=== PATIENT | female | born 1985 | race American Indian/Alaskan Native ===

== ENCOUNTER 2017-02-21 10:45 | Day surgery (SDC) | payer MEDICAID ==
--- NOTE | 2017-02-21 11:29 | Short Stay Summary ---
Short Stay Documentation Date of service: 02/21/17 Narrative H&P: 31y/o @ 9 weeks ega with findings of an embryonic demise. The ultrasound demonstrated no cardiac activity with a crown rump length of 7+6 weeks. The patient denies vaginal bleeding or passage of tissue. She reports no precipitating event for her demise. - History Principal diagnosis: Missed Past Medical History: No medical history Past Surgical History: Social history: single, smoking - Allergies and Medications Current Medications: Allergies oxycodone [Oxycodone] Allergy (Verified 02/20/17 19:31) Shortness of Breath Home Medications Medication Instructions Recorded Confirmed Last Taken Type Acetaminophen [Tylenol Extra 500 mg PO Q6H PRN 02/20/17 02/20/17 Unknown History Strength] - Physical exam General appearance: no acute distress Integumentary: no rash HEENT: Atraumatic Lungs: Clear to auscultation Breasts: deferred Heart: Regular rate Gastrointestinal: normal - Brief post op/procedure progress note Date of procedure: 02/21/17 Pre-op diagnosis: embryonic demise Post-op diagnosis: same Procedure: Suction dilatation and curettage Anesthesia: GETA Surgeon: KECIA KAT Estimated blood loss: 50-100ml Pathology: list (products of conception) Specimen disposition: to lab Condition: stable - Hospital course Hospital course: The patient was admitted the day of surgery and underwent a suction dilatation and curettage for embryonic demise at 8 weeks. Please see operative note for details of surgery. Her postoperative course was uneventful. - Disposition Condition at discharge: Good Disposition: DC-01 TO HOME OR SELFCARE Short Stay Discharge Plan Activity: other (pelvic rest for 1 week) Diet: regular Additional Instructions: Follow-up with Dr. Kat 2-4 weeks Prescriptions: Hydromorphone HCl [Dilaudid] 4 mg PO Q8H PRN #20 tablet PRN Reason: Pain Ibuprofen [Motrin] 800 mg PO Q8HR PRN #60 tablet PRN Reason: Pain
[2017-02-21] MEDS ORDERED: NACL BACTERIOSTATIC INFILTRATI ONE (11:31)
--- NOTE | 2017-02-21 11:56 | Anesthesia Consultation ---
Anesthesia Consult and Med Hx Date of service: 02/21/17 - Airway Anesthetic Teeth Evaluation: Good ROM Head & Neck: Adequate Mental/Hyoid Distance: Adequate Mallampati Class: Class II Intubation Access Assessment: Probably Good - Pulmonary Exam CTA: Yes - Cardiac Exam Cardiac Exam: RRR - Pre-Operative Health Status ASA Pre-Surgery Classification: ASA2 Proposed Anesthetic Plan: General - Pulmonary Hx Smoking: Yes (quit when found out she was ) Hx Asthma: Yes COPD: No Hx Pneumonia: No - Central Nervous System Hx Psychiatric Problems: No - Gastrointestinal Hx Ulcer: No (diverticulitis) - Endocrine Hx End Stage Renal Disease: No - Hematic Hx Anemia: Yes - Other Systems Hx Cancer: No Hx Obesity: Yes (BMI 37.7)
--- NOTE | 2017-02-21 11:56 | Anesthesia Day of Surgery ---
Anesthesia Day of Surgery - Day of Surgery Patient Examined: Yes Patient H&P Reviewed: Yes Patient is NPO: Yes
[2017-02-21] MEDS ORDERED: MORPHINE IV PRN (11:57)
[2017-02-21] MEDS ORDERED: VERSED IV NR (12:00)
[2017-02-21] MEDS ORDERED: PEPCID PO NR (12:00)
[2017-02-21] MEDS ORDERED: LACTATED RINGERS 1,000 ML IV SCH (12:00)
[2017-02-21] MEDS ORDERED: XYLOCAINE MPF 2% ONE (12:29)
[2017-02-21] MEDS ORDERED: DIPRIVAN 10 MG/ML IV ONE (12:29)
[2017-02-21] MEDS ORDERED: DECADRON ONE (12:30)
[2017-02-21] MEDS ORDERED: ZOFRAN ONE (12:30)
[2017-02-21] MEDS ORDERED: DILAUDID ONE (12:33)
[2017-02-21] MEDS ORDERED: METHERGINE IM ONE ×2 (13:11→13:28)
--- NOTE | 2017-02-21 13:20 | Operative Report ---
Operative Report Operative Report: Date of surgery: 02/21/2017 Preoperative diagnosis: Missed Postoperative diagnosis: Same as above Procedure: Suction dilatation and curettage Surgeon: Michelle Joseph M.D. Anesthesia: Gen. endotracheal anesthesia Estimated blood loss: 100 mL Findings: Products of conception Indication: 31-year-old 003 at 9 weeks estimated gestational age who underwent ultrasound with findings of embryonic demise that occurred at approximately 7+6 weeks gestational age Procedure: The patient was taken to the operating room and given general endotracheal anesthesia without complication. The patient is prepped and draped in a normal sterile fashion. A bivalve speculum was placed in the patient's vagina and a single-tooth tenaculums placed on the anterior lip of the cervix. The uterine cavity was then sounded. The cervical os was then dilated with graduated dilators. A number 8 Maori curved cannula was placed to suction and found to be adequate. The cannula was then gently inserted into the dilated cervical os. Evacuation of the uterine contents were performed. Sharp curettage and endometrial surface was performed until cry was achieved. The cannula was then gently reinserted into the uterine cavity to evacuate any additional contents. After removal of the cannula there was no evidence of any active bleeding. The vaginal instruments were then removed atraumatically. The patient was then successfully extubated and taken to the recovery room in stable condition. All sponge laps and needle counts were correct 2. Pathology consisted of products of conception.
[2017-02-21] MEDS ORDERED: NACL 0.9% IR ONE (13:28)
[2017-02-21] MEDS ORDERED: NORCO 10/325 PO PRN (14:35)
[2017-02-21 14:58] VITALS: BP 105/61
== END 2017-02-21 16:00 | disposition home or self-care (01) ==
LOC: OR 10:45
PROVIDERS: ATTEND Obstetrics & Gynecology
DX: O02.1 Missed abortion (principal); J45.909 Unspecified asthma, uncomplicated; E66.01 Morbid (severe) obesity due to excess calories; Z68.37 Body mass index [BMI] 37.0-37.9, adult; Z98.890 Other specified postprocedural states; Z88.5 Allergy status to narcotic agent; Z87.891 Personal history of nicotine dependence; Z3A.09 9 weeks gestation of pregnancy
CPT/HCPCS: 59820; 88305; J1100; J1170; J2210; J2250; J2270; J2405; J2704; J7120

== ENCOUNTER 2017-09-06 09:11 | Emergency (ER) | payer MEDICAID ==
[2017-09-06 09:19] VITALS: BP 115/70
[2017-09-06] MEDS ORDERED: MOTRIN PO ONE (09:38)
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
== END 2017-09-06 10:07 | disposition home or self-care (01) ==
LOC: ED 09:11
DX: M25.561 Pain in right knee (principal); K21.9 Gastro-esophageal reflux disease without esophagitis; G43.909 Migraine, unspecified, not intractable, without status migrainosus; J45.909 Unspecified asthma, uncomplicated; F17.200 Nicotine dependence, unspecified, uncomplicated; Z88.8 Allergy status to other drugs, medicaments and biological substances
CPT/HCPCS: 99283

== ENCOUNTER 2018-01-09 09:58 | Emergency (ER) | payer SELFPAY ==
[2018-01-09 10:11] VITALS: BP 117/74
[2018-01-09 10:53] LABS: Bilirubin,Urine NEG (Negative); Blood,Urine NEG (Negative); Color,Urine Yellow (Yellow); Mucus,Urine FEW /HPF; Urobilinogen,Urine < 2.0 mg/dL (<2.0)
[2018-01-09 10:55] LABS: HCG Qualitative,Urine Negative (Negative)
--- NOTE | 2018-01-09 11:13 | Emergency Department Report ---
ED Abdominal Pain HPI - General Chief Complaint: Abdominal Pain Stated Complaint: NAUSEA/ABD PAIN Time Seen by Provider: 01/09/18 10:38 Source: patient Mode of arrival: Ambulatory Limitations: No Limitations - History of Present Illness Initial Comments: 32-year-old female with suprapubic pain 2 days. Patient reports nausea, denies vomiting. Patient reports urinary frequency, denies vaginal bleeding or discharge, denies hematuria. Patient states pain somewhat relieved with ibuprofen. States pain is constant and feels like she has a knot in her stomach. Patient states he has had episodes similar to the past, but has never been evaluated for it. States the pain usually lasts 3 days and then goes away. Patient states she decided to undergo evaluation today because she now has a job in before she was able to stay home and rest and wait for the pain to subside. MD Complaint: abdominal pain -: days(s) (2) Location: suprapubic Radiation: none Migration to: no migration Severity: moderate Quality: other ("feels like a knot in my stomach") Consistency: constant Improves With: medication (ibuprofen) Worsens With: nothing Associated Symptoms: nausea, constipation. denies: vomiting, diarrhea, fever, dysuria, hematuria Treatments Prior to Arrival: NSAIDs - Related Data Home Medications Medication Instructions Recorded Confirmed Last Taken Acetaminophen [Tylenol Extra 500 mg PO Q6H PRN 02/20/17 02/21/17 02/20/17 Strength] Previous Rx's Medication Instructions Recorded Last Taken Type Hydromorphone HCl [Dilaudid] 4 mg PO Q8H PRN #20 tablet 02/21/17 Unknown Rx Ibuprofen [Motrin] 800 mg PO Q8HR PRN #60 tablet 02/21/17 Unknown Rx Ibuprofen 800 mg PO Q6H 5 Days #20 tablet 09/06/17 Unknown Rx Naproxen [Naprosyn] 500 mg PO BID #20 tablet 01/09/18 Unknown Rx Promethazine [Phenergan TAB] 25 mg PO Q6HR PRN #20 tab 01/09/18 Unknown Rx traMADol [Ultram] 50 mg PO Q6HR PRN #7 tablet 01/09/18 Unknown Rx Allergies Allergy/AdvReac Type Severity Reaction Status Date / Time oxycodone [Oxycodone] Allergy Shortness Verified 02/20/17 19:31 of Breath ED Review of Systems ROS: Stated complaint: NAUSEA/ABD PAIN Other details as noted in HPI Comment: All other systems reviewed and negative Constitutional: denies: chills, fever Gastrointestinal: abdominal pain, nausea, constipation. denies: vomiting, diarrhea Genitourinary: frequency. denies: dysuria, hematuria, discharge, abnormal menses ED Past Medical Hx - Past Medical History Hx Congestive Heart Failure: No Hx Diabetes: No Hx GERD: Yes Hx Headaches / Migraines: Yes (migraines) Hx Asthma: Yes Hx COPD: No Additional medical history: diverticulitis PCOS - Surgical History Past Surgical History?: Yes Additional Surgical History: - Social History Smoking Status: Current Every Day Smoker Substance Use Type: None - Medications Home Medications: Home Medications Medication Instructions Recorded Confirmed Last Taken Type Acetaminophen [Tylenol Extra 500 mg PO Q6H PRN 02/20/17 02/21/17 02/20/17 History Strength] Hydromorphone HCl [Dilaudid] 4 mg PO Q8H PRN #20 tablet 02/21/17 Unknown Rx Ibuprofen [Motrin] 800 mg PO Q8HR PRN #60 tablet 02/21/17 Unknown Rx Ibuprofen 800 mg PO Q6H 5 Days #20 tablet 09/06/17 Unknown Rx Naproxen [Naprosyn] 500 mg PO BID #20 tablet 01/09/18 Unknown Rx Promethazine [Phenergan TAB] 25 mg PO Q6HR PRN #20 tab 01/09/18 Unknown Rx traMADol [Ultram] 50 mg PO Q6HR PRN #7 tablet 01/09/18 Unknown Rx ED Physical Exam - General Limitations: No Limitations General appearance: alert, in no apparent distress - Head Head exam: Present: atraumatic, normocephalic - Eye Eye exam: Present: normal appearance - ENT ENT exam: Present: mucous membranes moist - Neck Neck exam: Present: normal inspection - Respiratory Respiratory exam: Present: normal lung sounds bilaterally. Absent: respiratory distress - Cardiovascular Cardiovascular Exam: Present: regular rate, normal rhythm - GI/Abdominal GI/Abdominal exam: Present: soft, tenderness (mild suprapubic tenderness) - Extremities Exam Extremities exam: Present: normal inspection - Neurological Exam Neurological exam: Present: alert, oriented X3 - Psychiatric Psychiatric exam: Present: normal affect, normal mood - Skin Skin exam: Present: warm, dry, intact, normal color ED Course Vital Signs 01/09/18 01/09/18 10:06 12:48 Temperature 98.9 F Pulse Rate 64 Respiratory 18 18 Rate Blood Pressure 117/74 O2 Sat by Pulse 100 Oximetry ED Medical Decision Making - Radiology Data Radiology results: report reviewed, image reviewed ULTRASOUND PELVIS DUPLEX DOPPLER COMPLETE ULTRASOUND TRANSVAGINAL HISTORY: Abdominal pain. COMPARISON: None. TECHNIQUE: Transabdominal and transvaginal ultrasound with color doppler interrogation. FINDINGS: Uterus: The uterus is anteverted. The uterus measures 8.6 x 4.5 x 5.5 cm. There is suggestion of a scar in the anterior wall, correlate with history. Normal cervix. Endometrium: Homogeneous. 10 mm in thickness. Right ovary: 2.1 x 1.9 x 1.7 cm. A 1.6 cm exophytic cyst is noted from the right ovary. Left ovary: 3.1 x 2.4 x 2.5 cm. No focal abnormality. No pelvic fluid or mass is identified. Spectral Doppler waveforms demonstrate arterial flow to both ovaries IMPRESSION: 1.6 cm right ovarian cyst. Transcribed By: TTR Dictated By: BOYD GUTIERREZ JR, MD Electronically Authenticated By: BOYD GUTIERREZ JR, MD Signed Date/Time: 01/09/18 1210 - Differential Diagnosis UTI, , ovarian cyst, ovarian torsion Critical care attestation.: If time is entered above; I have spent that time in minutes in the direct care of this critically ill patient, excluding procedure time. ED Disposition Clinical Impression: Right ovarian cyst Disposition: DC-01 TO HOME OR SELFCARE Is pt being admited?: No Condition: Stable Instructions: Ovarian Cyst (ED) Prescriptions: Naproxen [Naprosyn] 500 mg PO BID #20 tablet Promethazine [Phenergan TAB] 25 mg PO Q6HR PRN #20 tab PRN Reason: Nausea traMADol [Ultram] 50 mg PO Q6HR PRN #7 tablet PRN Reason: Pain Referrals: PRIMARY CARE, [Primary Care Provider] - 3-5 Days [facility] [Provider Group] - 3-5 Days Forms: Work/School Release Form(ED) Time of Disposition: 12:31
--- NOTE | 2018-01-09 12:12 | Ultrasound Report ---
ULTRASOUND PELVIS DUPLEX DOPPLER COMPLETE ULTRASOUND TRANSVAGINAL HISTORY: Abdominal pain. COMPARISON: None. TECHNIQUE: Transabdominal and transvaginal ultrasound with color doppler interrogation. FINDINGS: Uterus: The uterus is anteverted. The uterus measures 8.6 x 4.5 x 5.5 cm. There is suggestion of a scar in the anterior wall, correlate with history. Normal cervix. Endometrium: Homogeneous. 10 mm in thickness. Right ovary: 2.1 x 1.9 x 1.7 cm. A 1.6 cm exophytic cyst is noted from the right ovary. Left ovary: 3.1 x 2.4 x 2.5 cm. No focal abnormality. No pelvic fluid or mass is identified. Spectral Doppler waveforms demonstrate arterial flow to both ovaries IMPRESSION: 1.6 cm right ovarian cyst.
[2018-01-09] MEDS ORDERED: ULTRAM ONE (12:44)
[2018-01-09] MEDS ORDERED: ULTRAM PO ONE (12:46)
== END 2018-01-09 12:51 | disposition home or self-care (01) ==
LOC: ED 09:58
DX: N83.201 Unspecified ovarian cyst, right side (principal); K21.9 Gastro-esophageal reflux disease without esophagitis; G43.909 Migraine, unspecified, not intractable, without status migrainosus; J45.909 Unspecified asthma, uncomplicated; F17.200 Nicotine dependence, unspecified, uncomplicated; Z88.5 Allergy status to narcotic agent
CPT/HCPCS: 76830; 81001; 81025; 93975; 99284

== ENCOUNTER 2018-09-24 08:21 | Emergency (ER) | payer MEDICAID, OTHER ==
[2018-09-24 08:43] VITALS: BP 111/67
[2018-09-24] MEDS ORDERED: ZOFRAN IV ONE (09:56)
[2018-09-24] MEDS ORDERED: NACL 0.9% 1000 ML 1,000 ML IV ONE (09:56)
[2018-09-24 12:23] LABS: Bacteria,Urine 1+ /HPF (Negative); Bilirubin,Urine NEG (Negative); Blood,Urine NEG (Negative); Color,Urine Yellow (Yellow); Mucus,Urine 2+ /HPF; Protein,Urine <15 mg/dL mg/dL (Negative)
--- NOTE | 2018-09-24 12:49 | Emergency Department Report ---
ED General Adult HPI - General Chief complaint: Dizziness Stated complaint: DIZZINESS Time Seen by Provider: 09/24/18 09:46 Source: patient Mode of arrival: Ambulatory Limitations: No Limitations - History of Present Illness Initial comments: Patient is a 33-year-old Female who is presenting with some nausea vomiting and mild dizziness for the last several days. Patient states she is and her last menstrual period is 08/10/2018. Patient has not seen FLOORING GRADER as of yet and does not have insurance secondary to not have a confirmation of . Patient states that she has some generalized crampy lower abdominal discomfort but denies any vaginal bleeding. Severity scale (0 -10): 4 - Related Data Home Medications Medication Instructions Recorded Confirmed Last Taken Acetaminophen [Tylenol Extra 500 mg PO Q6H PRN 02/20/17 02/21/17 02/20/17 Strength] Previous Rx's Medication Instructions Recorded Last Taken Type Hydromorphone HCl [Dilaudid] 4 mg PO Q8H PRN #20 tablet 02/21/17 Unknown Rx Ibuprofen [Motrin] 800 mg PO Q8HR PRN #60 tablet 02/21/17 Unknown Rx Ibuprofen [Ibuprofen 800] 800 mg PO Q6H 5 Days #20 tablet 09/06/17 Unknown Rx Naproxen [Naprosyn] 500 mg PO BID #20 tablet 01/09/18 Unknown Rx Promethazine [Phenergan TAB] 25 mg PO Q6HR PRN #20 tab 01/09/18 Unknown Rx traMADol [Ultram] 50 mg PO Q6HR PRN #7 tablet 01/09/18 Unknown Rx ALBUTEROL Inhaler (OR & NICU) 2 puff IH QID PRN #1 inhalation 02/18/18 Unknown Rx [ProAir HFA Inhaler] Azithromycin [Zithromax Z-WALDEMAR] 250 mg PO DAILY #6 tablet 02/18/18 Unknown Rx Ondansetron [Zofran Odt] 4 mg PO Q8HR PRN #10 tab.rapdis 02/18/18 Unknown Rx predniSONE [Deltasone] 20 mg PO QDAY #5 tab 02/18/18 Unknown Rx Nitrofurantoin Sutter/M-Cryst 100 mg PO Q12HR #14 capsule 09/24/18 Unknown Rx [Macrobid CAP] Ondansetron [Zofran Odt] 4 mg PO Q8HR #10 tab.rapdis 09/24/18 Unknown Rx Allergies Allergy/AdvReac Type Severity Reaction Status Date / Time oxycodone [Oxycodone] Allergy Shortness Verified 09/24/18 08:37 of Breath ED Review of Systems ROS: Stated complaint: DIZZINESS Other details as noted in HPI Comment: All other systems reviewed and negative ED Past Medical Hx - Past Medical History Hx Congestive Heart Failure: No Hx Diabetes: No Hx GERD: Yes Hx Headaches / Migraines: Yes (migraines) Hx Asthma: Yes Hx COPD: No Additional medical history: diverticulitis PCOS - Surgical History Additional Surgical History: - Social History Smoking Status: Current Every Day Smoker - Medications Home Medications: Home Medications Medication Instructions Recorded Confirmed Last Taken Type Acetaminophen [Tylenol Extra 500 mg PO Q6H PRN 02/20/17 02/21/17 02/20/17 History Strength] Hydromorphone HCl [Dilaudid] 4 mg PO Q8H PRN #20 tablet 02/21/17 Unknown Rx Ibuprofen [Motrin] 800 mg PO Q8HR PRN #60 tablet 02/21/17 Unknown Rx Ibuprofen [Ibuprofen 800] 800 mg PO Q6H 5 Days #20 tablet 09/06/17 Unknown Rx Naproxen [Naprosyn] 500 mg PO BID #20 tablet 01/09/18 Unknown Rx Promethazine [Phenergan TAB] 25 mg PO Q6HR PRN #20 tab 01/09/18 Unknown Rx traMADol [Ultram] 50 mg PO Q6HR PRN #7 tablet 01/09/18 Unknown Rx ALBUTEROL Inhaler (OR & NICU) 2 puff IH QID PRN #1 inhalation 02/18/18 Unknown Rx [ProAir HFA Inhaler] Azithromycin [Zithromax Z-WALDEMAR] 250 mg PO DAILY #6 tablet 02/18/18 Unknown Rx Ondansetron [Zofran Odt] 4 mg PO Q8HR PRN #10 tab.rapdis 02/18/18 Unknown Rx predniSONE [Deltasone] 20 mg PO QDAY #5 tab 02/18/18 Unknown Rx Nitrofurantoin Sutter/M-Cryst 100 mg PO Q12HR #14 capsule 09/24/18 Unknown Rx [Macrobid CAP] Ondansetron [Zofran Odt] 4 mg PO Q8HR #10 tab.rapdis 09/24/18 Unknown Rx ED Physical Exam - General Limitations: No Limitations General appearance: alert, in no apparent distress - Head Head exam: Present: atraumatic, normocephalic - Eye Eye exam: Present: normal appearance - ENT ENT exam: Present: mucous membranes moist - Neck Neck exam: Present: normal inspection - Respiratory Respiratory exam: Present: normal lung sounds bilaterally. Absent: respiratory distress, wheezes, rales, rhonchi - Cardiovascular Cardiovascular Exam: Present: regular rate, normal rhythm. Absent: systolic murmur, diastolic murmur, rubs, gallop - GI/Abdominal GI/Abdominal exam: Present: soft, normal bowel sounds. Absent: distended, tenderness, guarding, rebound - Extremities Exam Extremities exam: Present: normal inspection - Back Exam Back exam: Present: normal inspection - Neurological Exam Neurological exam: Present: alert, oriented X3 - Psychiatric Psychiatric exam: Present: normal affect, normal mood - Skin Skin exam: Present: warm, dry, intact, normal color. Absent: rash ED Course Vital Signs 09/24/18 09/24/18 09/24/18 08:42 09:29 10:43 Temperature 98.5 F Pulse Rate 74 Respiratory 20 16 14 Rate Blood Pressure 111/67 [Right] O2 Sat by Pulse 100 99 Oximetry ED Medical Decision Making - Lab Data Lab Results 09/24/18 09/24/18 Range/Units 10:12 11:32 HCG, Quant 81221 H (0-4) mIU/mL Urine Color Yellow (Yellow) Urine Turbidity Slightly-cloudy (Clear) Urine pH 6.0 (5.0-7.0) Ur Specific Carlos 1.014 (1.003-1.030) Urine Protein <15 mg/dl (Negative) mg/dL Urine Glucose (UA) Neg (Negative) mg/dL Urine Ketones 20 (Negative) mg/dL Urine Blood Neg (Negative) Urine Nitrite Neg (Negative) Urine Bilirubin Neg (Negative) Urine Urobilinogen 2.0 (<2.0) mg/dL Ur Leukocyte Esterase Mod (Negative) Urine WBC (Auto) 39.0 H (0.0-6.0) /HPF Urine RBC (Auto) 5.0 (0.0-6.0) /HPF U Epithel Cells (Auto) 1.0 (0-13.0) /HPF Urine Bacteria (Auto) 1+ (Negative) /HPF Urine Mucus 2+ /HPF - Medical Decision Making Patient's heart tones with normal limits. Patient was hydrated and given antiemetics and does feel better. Patient also shows evidence of a urinary tract infection will be started on Macrobid. Critical care attestation.: If time is entered above; I have spent that time in minutes in the direct care of this critically ill patient, excluding procedure time. ED Disposition Clinical Impression: Hyperemesis gravidarum Acute cystitis during Qualifiers: Trimester: first trimester Qualified Code(s): O23.11 - Infections of bladder in , first trimester Disposition: DC-01 TO HOME OR SELFCARE Is pt being admited?: No Does the pt Need Aspirin: No Condition: Stable Instructions: Hyperemesis Gravidarum (ED), Urinary Tract Infection in Women (ED) Referrals: EMANI MATSON MD [Primary Care Provider] - 3-5 Days Time of Disposition: 12:49
== END 2018-09-24 13:09 | disposition home or self-care (01) ==
LOC: ED 08:21
DX: O21.9 Vomiting of pregnancy, unspecified (principal); O23.11 Infections of bladder in pregnancy, first trimester; Z3A.01 Less than 8 weeks gestation of pregnancy
CPT/HCPCS: 36415; 81001; 84702; 87086; 96361; 96374; 99283; J2405; J7030

== ENCOUNTER 2018-09-29 08:17 | Emergency (ER) | payer MEDICAID, OTHER ==
[2018-09-29 08:50] LABS: Basophils % (Auto) 0.6 % (0.0-1.8); Eosinophils # (Auto) 0.1 K/mm3 (0.0-0.4); Eosinophils % (Auto) 0.9 % (0.0-4.3); Hematocrit 38.3 % (30.3-42.9); Hemoglobin 12.7 gm/dl (10.1-14.3); Lymphocytes # (Auto) 2.5 K/mm3 (1.2-5.4); Lymphocytes % (Auto) 32.2 % (13.4-35.0); Mean Corpuscular HGB Conc 33 % (30-34); Mean Corpuscular Volume 87 fl (79-97); Monocytes # (Auto) 0.5 K/mm3 (0.0-0.8); Monocytes % (Auto) 5.8 % (0.0-7.3); Platelet Count 289 K/mm3 (140-440); Red Cell Distribution Width 16.7 % (13.2-15.2)
[2018-09-29 09:20] LABS: BUN/Creatinine Ratio 12; Blood Urea Nitrogen 6 mg/dL (7-17); Calcium 9.4 mg/dL (8.4-10.2); Hemolysis Index 7
[2018-09-29 10:00] LABS: INR 1.04 (0.87-1.13)
[2018-09-29 10:01] LABS: Partial Thromboplastin Time 24.9 Sec. (24.2-36.6)
[2018-09-29] MEDS ORDERED: NACL 0.9% 1000 ML 1,000 ML IV ONE (10:04)
[2018-09-29] MEDS ORDERED: REGLAN IV ONE (10:14)
--- NOTE | 2018-09-29 10:29 | Emergency Department Report ---
HPI - General Chief Complaint: GI Bleed Time Seen by Provider: 09/29/18 09:20 - HPI HPI: 33-year-old female presents to the emergency department with a complaint of nausea, vomiting, dizziness and some rectal bleeding. The patient is currently but is unknown how far along she is. With this she is with one previous miscarriage. The patient says that she had an episode last night with a bowel movement that caused dark tarry stool. She denies any abdominal or pelvic pain. The patient was here about 5 or 6 days ago for the nausea and vomiting and was discharged with some Zofran. She says that the Zofran causes increased dizziness which does not help with her current symptoms. She otherwise has a past medical history of asthma, migraine headaches, PCO2 S and diverticulitis. She does not currently have an JOB DEVELOPER. The patient also complains of some either difficulty urinating or decreased urine output. She says that she is drinking fluids and sometimes she can "push out" the urine. ED Past Medical Hx - Past Medical History Previous Medical History?: Yes Hx Congestive Heart Failure: No Hx Diabetes: No Hx GERD: Yes Hx Headaches / Migraines: Yes (migraines) Hx Asthma: Yes Hx COPD: No Additional medical history: diverticulitis PCOS - Surgical History Past Surgical History?: Yes Additional Surgical History: - Social History Smoking Status: Current Every Day Smoker Substance Use Type: None - Medications Home Medications: Home Medications Medication Instructions Recorded Confirmed Last Taken Type Metoclopramide [Reglan] 10 mg PO TID PRN #15 tab 09/29/18 Unknown Rx Nitrofurantoin [place]/M-Cryst 100 mg PO Q12HR #14 capsule 09/29/18 Unknown Rx [Macrobid CAP] Vit-Fe Fumar-FA [ 1 tab PO QDAY #30 tablet 09/29/18 Unknown Rx Vitamin] ED Review of Systems ROS: Stated complaint: BLOOD IN STOOL/WEAK/VOMITING Other details as noted in HPI Comment: All other systems reviewed and negative Constitutional: denies: chills, fever Eyes: denies: eye pain, vision change ENT: denies: ear pain Respiratory: denies: cough, shortness of breath Cardiovascular: denies: chest pain, palpitations Gastrointestinal: nausea, vomiting, melena Genitourinary: dysuria. denies: hematuria, discharge Musculoskeletal: denies: back pain, arthralgia Skin: denies: rash, lesions Neurological: denies: headache, weakness Physical Exam - Physical Exam Vital Signs: Vital Signs 09/29/18 09/29/18 09/29/18 08:24 09:15 09:30 Temperature 98.3 F Pulse Rate 70 Respiratory 20 Rate Blood Pressure 129/84 120/61 105/57 O2 Sat by Pulse 99 100 100 Oximetry 09/29/18 10:00 Temperature Pulse Rate Respiratory Rate Blood Pressure 113/59 O2 Sat by Pulse 100 Oximetry Physical Exam: GENERAL: The patient is well-developed well-nourished. HENT: Normocephalic. Atraumatic. Patient has moist mucous membranes. EYES: Extraocular motions are intact. NECK: Supple. Trachea is midline. CHEST/LUNGS: Clear to auscultation. There is no respiratory distress noted. HEART/CARDIOVASCULAR: Regular. There is no tachycardia. There is no murmur. ABDOMEN: Abdomen is soft, nontender. Patient has normal bowel sounds. There is no abdominal distention. SKIN: Skin is warm and dry. NEURO: The patient is awake, alert, and oriented. The patient is cooperative. The patient has no focal neurologic deficits. The patient has normal speech. MUSCULOSKELETAL: There is no tenderness or deformity. There is no limitation range of motion. There is no evidence of acute injury. RECTAL: No gross blood. There was not much stool but what was obtained was negative on guaiac testing. ED Course Vital Signs 09/29/18 09/29/18 09/29/18 08:24 09:15 09:30 Temperature 98.3 F Pulse Rate 70 Respiratory 20 Rate Blood Pressure 129/84 120/61 105/57 O2 Sat by Pulse 99 100 100 Oximetry 09/29/18 10:00 Temperature Pulse Rate Respiratory Rate Blood Pressure 113/59 O2 Sat by Pulse 100 Oximetry - Reevaluation(s) Reevaluation #1: 09/29/18 10:48 Rectal examination done with nurse Harrington at bedside as a director of optimization. - Consultations Consultation #1: 09/29/18 15:10 I spoke with the JOB DEVELOPER on-call, Dr. Del Toro, who listened to the case presentation including the patient's history, labs, imaging. He agrees that the ultrasound results appear consistent with a miscarriage and/or demise. He also agrees with the plan for outpatient follow-up with JOB DEVELOPER. ED Medical Decision Making - Lab Data Result diagrams: 09/29/18 08:32 09/29/18 08:32 - Radiology Data Radiology results: report reviewed ULTRASOUND OB LESS THAN 14 WEEKS FETUS ULTRASOUND OB TRANSVAGINAL HISTORY: Pelvic pain and cramping during COMPARISON: None. TECHNIQUE: Routine transabdominal and transvaginal OB ultrasound performed. FINDINGS: Uterus: Mildly enlarged measuring 9.1 x 6.1 x 7.7 cm. Gestational Sac: 4.3 cm average diameter which correlates with a 9 week 6 day Yolk Sac: Normal in appearance. Fetus/Embryo: The pole has an abnormal appearance and measures 2.0 cm which correlates with an 8 week 4 day Embryonic/ cardiac activity: 0bpm Placenta: Too small for evaluation. Amniotic fluid volume: Subjectively appropriate for gestational age. Ovaries: The right ovary is normal in size and appearance with normal blood flow, measuring 1.9 x 1.2 x 0.9 cm. The left ovary is normal in size and appearance with normal blood flow, measuring 3.1 x 2.0 x 3.6 cm. Hypoechoic space-occupying mass in the right ovary with peripheral vascularity is most likely the corpus luteum. Additional findings: None. IMPRESSION Abnormal appearance of the pole. No heart rate could be detected. These findings are concerning for demise. Correlation with the patient's clinical presentation and close interval follow-up is recommended. - Medical Decision Making This patient initially presented for the complaints of nausea and vomiting, dizziness while . The patient's labs are mostly unremarkable. The beta hCG appears to have gone up from about 44,000-110,000 the past 5 days. Urinalysis shows signs of dehydration with greater than 80 ketones and a mild urinary tract infection. Patient was started on Macrobid and given some IV fluid resuscitation. She was given some Reglan for nausea as she says she has an adverse reaction to Zofran. Patient is able to keep down fluids and pass an oral challenge. The ultrasound was done that shows a slightly abnormal appearance to the pole and there is no current heartbeat identified. I spoke to the patient agreed detail regarding this ultrasound results showing concern for demise. The patient understands the importance of following up in the next few days with JOB DEVELOPER for a repeat beta hCG and possibly repeat ultrasound. She also understands that if she is unable to get in to see an JOB DEVELOPER in a reasonable amount of time, the next few days, then she can return to the emergency department for further evaluation. In the meantime, the patient will be started on vitamins and will be given Macrobid for her urinary tract infection. Some precautions were given about returning to the emergency department with any sharp abdominal or pelvic pains or any heavy vaginal bleeding or hemorrhage. - Differential Diagnosis , hyperemesis gravidarum, threatened miscarriage, spontaneous misc Critical Care Time: No Critical care attestation.: If time is entered above; I have spent that time in minutes in the direct care of this critically ill patient, excluding procedure time. ED Disposition Clinical Impression: Dehydration, Abnormal obstetric ultrasound scan Nausea & vomiting Qualifiers: Vomiting type: unspecified Vomiting Intractability: non-intractable Qualified Code(s): R11.2 - Nausea with vomiting, unspecified UTI (urinary tract infection) Qualifiers: Urinary tract infection type: acute cystitis Hematuria presence: without hematuria Qualified Code(s): N30.00 - Acute cystitis without hematuria Disposition: TO HOME OR SELFCARE Is pt being admited?: No Condition: Stable Instructions: Threatened Miscarriage (ED), (ED), Urinary Tract Infection in Women (ED), Acute Nausea and Vomiting (ED) Additional Instructions: Please follow up with an JOB DEVELOPER in the next few days. The ultrasound today did not show any heartbeat and therefore there are concerns for possible demise/miscarriage. I am still starting you on vitamins. You will need evaluation by an JOB DEVELOPER for a repeat hormone level and possible ultrasound. If you are unable to get into an JOB DEVELOPER in a reasonable amount of time, you can return to the emergency department for further evaluation. Return to the emergency department immediately with any heavy vaginal bleeding, sharp pelvic or abdominal pains, or with any acute distress. Take the antibiotics as prescribed for urinary tract infection. Prescriptions: Nitrofurantoin [place]/M-Cryst [Macrobid CAP] 100 mg PO Q12HR #14 capsule Vit-Fe Fumar-FA [ Vitamin] 1 tab PO QDAY #30 tablet Metoclopramide [Reglan] 10 mg PO TID PRN #15 tab PRN Reason: Nausea Referrals: [facility] [Provider Group] - 3-5 Days [facility] [Provider Group] - 3-5 Days [facility] [Provider Group] - 3-5 Days Forms: Accompanied Note Time of Disposition: 14:15
[2018-09-29 11:30] LABS: Bacteria,Urine 1+ /HPF (Negative); Bilirubin,Urine NEG (Negative); Blood,Urine NEG (Negative); Color,Urine Yellow (Yellow); Mucus,Urine 3+ /HPF
[2018-09-29] MEDS ORDERED: MACROBID PO ONE (12:08)
[2018-09-29] MEDS: NACL 0.9% 1000 ML 1,000 ML IV ONE ×2 (12:45→13:34)
--- NOTE | 2018-09-29 13:42 | Ultrasound Report ---
ULTRASOUND OB LESS THAN 14 WEEKS FETUS ULTRASOUND OB TRANSVAGINAL HISTORY: Pelvic pain and cramping during COMPARISON: None. TECHNIQUE: Routine transabdominal and transvaginal OB ultrasound performed. FINDINGS: Uterus: Mildly enlarged measuring 9.1 x 6.1 x 7.7 cm. Gestational Sac: 4.3 cm average diameter which correlates with a 9 week 6 day Yolk Sac: Normal in appearance. Fetus/Embryo: The pole has an abnormal appearance and measures 2.0 cm which correlates with an 8 week 4 day Embryonic/ cardiac activity: 0bpm Placenta: Too small for evaluation. Amniotic fluid volume: Subjectively appropriate for gestational age. Ovaries: The right ovary is normal in size and appearance with normal blood flow, measuring 1.9 x 1. 2 x 0.9 cm. The left ovary is normal in size and appearance with normal blood flow, measuring 3.1 x 2.0 x 3.6 cm. Hypoechoic space-occupying mass in the right ovary with peripheral vascularity is most likely the corpus luteum. Additional findings: None. IMPRESSION Abnormal appearance of the pole. No heart rate could be detected. These findings are conc erning for demise. Correlation with the patient's clinical presentation and close interval foll ow-up is recommended. Signer Name: Aren Daniel Jr, MD Signed: 09/29/2018 1:38 PM Workstation Name: [id number]
[2018-09-29 14:55] VITALS: BP 105/56
== END 2018-09-29 15:29 | disposition home or self-care (01) ==
LOC: ED 08:17
DX: O23.41 Unspecified infection of urinary tract in pregnancy, first trimester (principal); O21.9 Vomiting of pregnancy, unspecified; O26.891 Other specified pregnancy related conditions, first trimester; E86.0 Dehydration; G43.909 Migraine, unspecified, not intractable, without status migrainosus; O99.611 Diseases of the digestive system complicating pregnancy, first trimester; K21.0 Gastro-esophageal reflux disease with esophagitis; O99.511 Diseases of the respiratory system complicating pregnancy, first trimester; J45.909 Unspecified asthma, uncomplicated; O99.331 Smoking (tobacco) complicating pregnancy, first trimester; F17.200 Nicotine dependence, unspecified, uncomplicated; Z3A.09 9 weeks gestation of pregnancy; Z79.899 Other long term (current) drug therapy; Z88.8 Allergy status to other drugs, medicaments and biological substances
CPT/HCPCS: 36415; 76801; 76817; 80048; 81001; 84702; 85025; 85610; 85730; 87086; 96361; 96374; 99284; J2765; J7030

== ENCOUNTER 2019-05-11 00:08 | Emergency (ER) | payer MEDICAID, OTHER ==
[2019-05-11 00:30] VITALS: BP 147/91
[2019-05-11] MEDS ORDERED: SODIUM CHLORIDE 0.9% IRR 500 ML BOTTLE IR ONE (03:36)
[2019-05-11] MEDS ORDERED: SODIUM CHLORIDE IRRI 500 ML 500 ML IR ONE (03:36)
[2019-05-11] MEDS ORDERED: ACETAMINOPHEN 325 MG TAB PO ONE (03:47)
[2019-05-11] MEDS ORDERED: ACETAMINOPHEN 500 MG TAB ONE (03:49)
--- NOTE | 2019-05-11 04:28 | Emergency Department Report ---
ED ENT HPI - General Chief complaint: Earache Stated complaint: FB/RT EAR Time Seen by Provider: 05/11/19 03:19 Source: patient Mode of arrival: Ambulatory Limitations: No Limitations - History of Present Illness Initial comments: 33-year-old -[place] female presents to the emergency room for possible bug in right ear. Patient reports she feels it moving. This started 30 to 45 minutes prior to arrival. Patient reports she is used peroxide without relief. Patient is 39 weeks . 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) Location: R ear Severity: severe Severity scale (0 -10): 9 Quality: stabbing, sharp Consistency: intermittent Improves with: none Worsens with: none Associated Symptoms: denies: fever, pain with swallowing, tinnitus, discharge from ear - Related Data Previous Rx's Medication Instructions Recorded Last Taken Type Metoclopramide [Reglan] 10 mg PO TID PRN #15 tab 09/29/18 Unknown Rx Nitrofurantoin [place]/M-Cryst 100 mg PO Q12HR #14 capsule 09/29/18 Unknown Rx [Macrobid CAP] Vit-Fe Fumar-FA [ 1 tab PO QDAY #30 tablet 09/29/18 Unknown Rx Vitamin] Allergies Allergy/AdvReac Type Severity Reaction Status Date / Time oxycodone [Oxycodone] Allergy Shortness Verified 09/24/18 08:37 of Breath ED Dental HPI - General Chief complaint: Earache Stated complaint: FB/RT EAR Time Seen by Provider: 05/11/19 03:19 Source: patient Mode of arrival: Ambulatory Limitations: No Limitations - Related Data Previous Rx's Medication Instructions Recorded Last Taken Type Metoclopramide [Reglan] 10 mg PO TID PRN #15 tab 09/29/18 Unknown Rx Nitrofurantoin [place]/M-Cryst 100 mg PO Q12HR #14 capsule 09/29/18 Unknown Rx [Macrobid CAP] Vit-Fe Fumar-FA [ 1 tab PO QDAY #30 tablet 09/29/18 Unknown Rx Vitamin] Allergies Allergy/AdvReac Type Severity Reaction Status Date / Time oxycodone [Oxycodone] Allergy Shortness Verified 09/24/18 08:37 of Breath ED Review of Systems ROS: Stated complaint: FB/RT EAR Other details as noted in HPI Comment: All other systems reviewed and negative ED Past Medical Hx - Past Medical History Previous Medical History?: Yes Hx Congestive Heart Failure: No Hx Diabetes: No Hx GERD: Yes Hx Headaches / Migraines: Yes (migraines) Hx Asthma: Yes Hx COPD: No Additional medical history: diverticulitis PCOS - Surgical History Past Surgical History?: Yes Additional Surgical History: - Social History Smoking Status: Never Smoker Substance Use Type: None - Medications Home Medications: Home Medications Medication Instructions Recorded Confirmed Last Taken Type Metoclopramide [Reglan] 10 mg PO TID PRN #15 tab 09/29/18 Unknown Rx Nitrofurantoin [place]/M-Cryst 100 mg PO Q12HR #14 capsule 09/29/18 Unknown Rx [Macrobid CAP] Vit-Fe Fumar-FA [ 1 tab PO QDAY #30 tablet 09/29/18 Unknown Rx Vitamin] ED Physical Exam - General Limitations: No Limitations General appearance: alert, in no apparent distress - Head Head exam: Present: atraumatic, normocephalic - Eye Eye exam: Present: normal appearance - ENT ENT exam: Present: mucous membranes moist - Expanded ENT Exam Expanded TM/Canal exam: Loss of Landmarks: Right TM, Foreign Body: Right TM (Garcia in ear) - Respiratory Respiratory exam: Present: normal lung sounds bilaterally. Absent: respiratory distress - Cardiovascular Cardiovascular Exam: Present: tachycardia - Neurological Exam Neurological exam: Present: alert, oriented X3, normal gait - Psychiatric Psychiatric exam: Present: normal affect, normal mood - Skin Skin exam: Present: warm, dry, intact, normal color. Absent: rash ED Course Vital Signs 05/11/19 00:14 Temperature 98.5 F Pulse Rate 132 H Respiratory 18 Rate Blood Pressure 147/91 O2 Sat by Pulse 99 Oximetry ED Medical Decision Making - Medical Decision Making 33-year-old -[place] female presents to the emergency room for possible bug in right ear. Patient reports she feels it moving. This started 30 to 45 minutes prior to arrival. Patient reports she is used peroxide without relief. Patient is 39 weeks . Patient reports that she started having contractions while in our [facility]. Discussed importance of having and labor delivery evaluate patient. Patient reports that she has a scheduled on Saturday which is tomorrow. I also discussed with patient that it would be safe for her to be evaluated and if they felt that she is not in true active labor they will send her home. Patient reports to nursing staff that she prefers to go home. Critical care attestation.: If time is entered above; I have spent that time in minutes in the direct care of this critically ill patient, excluding procedure time. ED Disposition Clinical Impression: Foreign body in right ear, initial encounter, Uterine contractions at greater than 20 weeks of gestation Disposition: DC- TO HOME OR SELFCARE Is pt being admited?: No Does the pt Need Aspirin: No Condition: Stable Instructions: Ear Foreign Body (ED) Additional Instructions: I recommend for you to go to labor and delivery and be evaluated for contractions. Also recommend for you to follow-up with an audio visual aide or ear nose and throat provider to have insect removed from right ear. Referrals: PRIMARY CARE, [Primary Care Provider] - 3-5 Days PANDA COX MD [Staff Physician] - 3-5 Days
== END 2019-05-11 04:36 | disposition home or self-care (01) ==
LOC: ED 00:08
DX: O62.4 Hypertonic, incoordinate, and prolonged uterine contractions (principal); O26.893 Other specified pregnancy related conditions, third trimester; T16.1XXA Foreign body in right ear, initial encounter; Z3A.39 39 weeks gestation of pregnancy; Z88.6 Allergy status to analgesic agent
CPT/HCPCS: 99282